=== PATIENT | female | born 1950 | race Caucasian/White ===

== ENCOUNTER 2018-04-02 11:00 | Emergency (ER) | payer BC ==
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
== END 2018-04-02 14:45 | disposition home or self-care (01) ==
LOC: JD.ED 11:00
DX: F32.9 Major depressive disorder, single episode, unspecified (principal); F41.9 Anxiety disorder, unspecified; F43.10 Post-traumatic stress disorder, unspecified; Z88.5 Allergy status to narcotic agent; Z88.0 Allergy status to penicillin; Z88.2 Allergy status to sulfonamides; Z88.1 Allergy status to other antibiotic agents; Z79.899 Other long term (current) drug therapy
CPT/HCPCS: 99284

== ENCOUNTER 2019-02-22 05:08 | Emergency (ER) | payer BC ==
[2019-02-22] MEDS ORDERED: HYDROmorphone 0.5 MG/0.5 ML Syringe IVPUSH ONE ×2 (05:40→07:03)
[2019-02-22] MEDS ORDERED: Ondansetron 4 MG/2 ML SDV IVPUSH ONE (05:40)
--- NOTE | 2019-02-22 05:43 | EDM.PDOC ---
ED HPI GENERAL MEDICAL PROBLEM - General Chief Complaint: Neck Problem Stated Complaint: SOB Time Seen by Provider: 02/22/19 05:25 Source of Information: Reports: Patient, Family (spouse) History Limitations: Reports: No Limitations - History of Present Illness INITIAL COMMENTS - FREE TEXT/NARRATIVE: 69-year-old female presents to the ED with her reporting increased pain central chest and a feeling of inability to swallow properly. Her breath at rest. Appreciate some difficulty swallowing as well. is a very complex past surgical history and medical history. Patient has had multiple effusions to her cervical spine from cervical 3 to T1. She is also had lumbar spine fusion surgery. She's had a tibial plateau fracture on her right knee repaired with hardware and is trimalleolar fracture of her left ankle many years ago. With hardware retained. Patient was diagnosed with rheumatoid arthritis in 2016 developed symptoms of diffuse joint pain in 2014. Developed increased pain in her upper thoracic spine approximately a week ago and is currently on Tramadol 50mg every 6 hours which is not helping the pain. She has chronic pain and difficulty walking. She has developed a significant scoliosis upper thoracic spine in the last 3-4 years. 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 She has a restrictive lung disease component due to the scoliosis of her thoracic spine. She is from [place]. Currently being followed by neurosurgeon in [place]. She is due for MRI of her cervical to lumbar spine in 2 days time at [facility] in [place]. Insert is whether or not she has developed a compression fracture in her thoracic spine. Currently she is having pain that seems to be an upper anterior central chest that radiates through to her back. This limits her ability to take a deep breath. She also has a sensation of difficulty swallowing. No rash development from being on tramadol. She has no known heart disease. She is currently not on any remittive agent for rheumatoid arthritis as she found all of them intolerant. Onset: Gradual Onset Date: 02/21/19 Onset Time: 12:00 Duration: Hour(s): Location: Reports: Neck, Chest Quality: Reports: Ache, Pressure Severity: Moderate (Mid and upper chest and throat. 8 out of 10) Improves with: Reports: None Worsens with: Reports: None Context: Reports: Other (Increased pain in her thoracic spine at T7-T8 level over the last week to 10 days). Denies: Activity, Exercise, Lifting, Sick Contact, Trauma Associated Symptoms: Reports: Chest Pain, Malaise, Shortness of Breath. Denies : Confusion, Cough, cough w sputum, Diaphoresis, Fever/Chills, Headaches, Loss of Appetite, Nausea/Vomiting, Rash, Seizure, Syncope Treatments [employer] CON[employer]YOR FEEDER: Reports: Other (see below) (Currently taking tramadol 50 mg every 6 hours.) Neck Pain Score (Numeric/FACES): 10 - Related Data Allergies Allergy/AdvReac Type Severity Reaction Status Date / Time codeine Allergy Nausea Verified 02/22/19 05:14 cortisone Allergy Burning Verified 02/22/19 05:14 Penicillins Allergy Airway Verified 02/22/19 05:14 Tightness sulfamethoxazole Allergy Chest Verified 02/22/19 05:14 [From Bactrim] Presssure trimethoprim [From Bactrim] Allergy Chest Verified 02/22/19 05:14 Presssure Home Meds: Home Meds ALPRAZolam [Xanax] 0.25 mg PO ASDIRECTED #30 tablet 04/02/18 [Rx] Cholecalciferol (Vitamin D3) [Vitamin D] 1,000 mg PO DAILY 04/02/18 [History] FLUoxetine [PROzac] 40 mg PO DAILY 04/02/18 [History] Multivitamins [Tab-A-Jaclyn] 1 tab PO DAILY 04/02/18 [History] Doxycycline [Vibramycin] 100 mg PO BID #20 cap 02/22/19 [Rx] oxyCODONE HCl/Acetaminophen [Percocet 5-325 mg Tablet] 1 - 2 each PO Q4H PRN # 24 tablet 02/22/19 [Rx] traMADol [Ultram] 50 mg PO Q6H PRN 02/22/19 [History] Past Medical History Cardiovascular History: Reports: Other (See Below) Other 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 Musculoskeletal History: Reports: Arthritis, RA, Other (See Below) Other Musculoskeletal History: left frqacture ankle with plate and screws Psychiatric History: Reports: Anxiety, Depression, PTSD - Past Surgical History HEENT Surgical History: Reports: Adenoidectomy, Tonsillectomy Female Surgical History: Reports: Section, Hysterectomy Musculoskeletal Surgical History: Reports: ORIF Other Musculoskeletal Surgeries/Procedures:: right knee with plate and 5 screws Social & Family History - Tobacco Use Smoking Status *Q: Never Smoker - Caffeine Use Caffeine Use: Reports: None - Recreational Drug Use Recreational Drug Use: No - Living Situation & Occupation Living situation: Reports: Occupation: Disabled ED ROS GENERAL - Review of Systems Review Of Systems: See Below Constitutional: Reports: Malaise, Weakness, Fatigue. Denies: Fever, Chills HEENT: Reports: Throat Swelling (Feels a pressure in her throat with difficulty swallowing.) Respiratory: Reports: Shortness of Breath. Denies: Wheezing, Pleuritic Chest Pain, Cough, Sputum, Hemoptysis, Other Cardiovascular: Reports: Chest Pain (Central chest pressure discomfort from anterior neck to xiphoid process.), Dyspnea on Exertion. Denies: Blood Pressure Problem, Claudication, Edema (Chronically worse the last year or so.), Lightheadedness, Orthopnea Endocrine: Reports: Fatigue (Chronically) GI/Abdominal: Reports: Constipation (Occasional positive constipation.) : Reports: No Symptoms Musculoskeletal: Reports: Neck Pain, Shoulder Pain, Back Pain, Joint Pain, Joint Swelling (Right knee left ankle. Left wrist both hands in the AM CP joints both feet in the MTP joints from rheumatoid arthritis.). Denies: Arm Pain (Bilaterally.), Hand Pain (Cervical thoracic and lumbar back pain), Leg Pain Skin: Reports: No Symptoms Neurological: Reports: No Symptoms Psychiatric: Reports: Depression, Other Hematologic/Lymphatic: Reports: No Symptoms (Chronic pain syndrome.) Immunologic: Reports: No Symptoms ED EXAM, UPPER BACK/NECK PAIN - Physical Exam Exam: See Below Exam Limited By: No Limitations General Appearance: Alert, WD/WN, Mild Distress, Other (Respiratory 16 per minute and O2 sats only 93% on room air. Blood pressure is 120/78.) Throat/Mouth Exam: Normal Inspection, Normal Lips, Normal Teeth, Normal Oropharynx, Other (Tonsils are removed. There is no edema of the posterior oropharynx the uvula or the floor of her mouth.). No: Hoarse Voice Head Exam: Atraumatic, Normocephalic. No: Scalp Lacerations, Scalp Swelling, Scalp Abrasions, Scalp Ecchymosis, Scalp Hematoma, Scalp Tenderness Neck Exam: Limited Range of Motion (She has hardly any flexion or extension of her cervical spine. It is pretty well rigid from fusion from C3-T1.), Other ( She has anterior puffiness or full dose in her throat and a palpable thyroid gland on examination. Previous scar to the right mid anterior neck zone 2 from cervical spine fusion.). No: Full Range of Motion Nexus Criteria: Posterior, Midline Cervical Tenderness. No: Evidence of Intoxication, Altered Level of Consciousness, Focal Neurological Deficit, Painful Distraction Injuries Cardiovascular/Respiratory: Regular Rate, Rhythm, Normal Peripheral Pulses, No JVD, Other (Decreased air entry to both lung crump due to splinting respirations as deep breathing makes her have pain worse. She does have diffuse chest wall pain on palpation of the ribs especially on the left side 34 and 5 and 6. On the right side it's more the fourth rib.). No: Irregularly Irregular , Gallop, Murmur, Decreased Pulses, Accessory Muscle uUe, Wheezing GI/Abdominal: Normal Bowel Sounds, Soft, Non-Tender, No Organomegaly, No Mass, Pelvis Stable Back Exam: Decreased Range of Motion, Other (Surgical scar midline lumbar spine from previous fusion surgery.) Extremities: Other (Patient shows limited range of motion at the wrists with deformity of the left ulnar wrist from rheumatoid arthritis. She has mild ulnar drift of both wrists at and MCP joints. There is bunion's bilaterally in her feet and evidence of MTP joint inflammation. Previous surgical scar to the right knee and left ankle .) Neurologic: No Motor/Sensory Deficits, Alert, Oriented x 3 Psychiatric: Normal Affect, Normal Mood, Other Skin Exam: Normal Color, Warm/Dry (In spite of being in a great deal of pain.) EKG INTERPRETATION EKG Date: 02/22/19 Time: 05:51 Rhythm: NSR Rate (Beats/Min): 77 [place]: LAD-Left [place] Deviation (A left axis deviation of -1) P-Wave: Enlarged (Consider left atrial hypertrophy.) QRS: Other (Decreased voltage throughout the precordial leads. Prominent R waves in lead 1 consider left ventricular hypertrophy. Near Q-wave in lead 3 and aVF. Cannot rule out an old inferior wall myocardial infarction.) ST-T: Other (Minimal ST segment elevation lead to only.) QT: Normal EKG Interpretation Comments: Borderline ECG. Course - Vital Signs Last Recorded V/S: Last Vital Signs Temp 37.1 C 02/22/19 05:12 Pulse 87 02/22/19 05:12 Resp 16 02/22/19 05:12 BP 120/78 02/22/19 05:12 Pulse Ox 93 L 02/22/19 05:12 - Orders/Labs/Meds Orders: Active Orders 24 hr Category Date Time Status Bladder Scan [RC] ASDIRECTED Care 02/22/19 07:19 Active EKG Documentation Completion [RC] STAT Care 02/22/19 05:41 Active Chest 1V Frontal [CR] Stat Exams 02/22/19 05:41 Taken URINALYSIS W/MICROSCOPIC [UA W/MICROSCOPIC] [URIN] Stat Lab 02/22/19 07:40 Ordered Sodium Chloride 0.9% [Normal Saline] 1,000 ml Med 02/22/19 05:45 Active IV ASDIRECTED Medication Orders Sodium Chloride (Normal Saline) 1,000 mls @ 100 mls/hr IV ASDIRECTED JOSE L Last Admin: 02/22/19 05:51 Dose: 100 mls/hr Labs: Laboratory Tests 02/22/19 02/22/19 02/22/19 Range/Units 06:07 06:07 06:07 WBC 14.43 H (3.98-10.04) K/mm3 RBC 4.44 (3.98-5.22) M/mm3 Hgb 13.8 (11.2-15.7) gm/L Hct 42.3 (34.1-44.9) % MCV 95.3 H (79.4-94.8) fl MCH 31.1 (25.6-32.2) pg MCHC 32.6 (32.2-35.5) g/dl RDW Std Deviation 43.6 (36.4-46.3) fL Plt Count 229 (182-369) K/mm3 MPV 10.2 (9.4-12.3) fl Neutrophils % (Manual) 81 H (40-60) % Band Neutrophils % 4 (0-10) % Lymphocytes % (Manual) 6 L (20-40) % Atypical Lymphs % 0 % Monocytes % (Manual) 9 (2-10) % Eosinophils % (Manual) 0 L (0.7-5.8) % Basophils % (Manual) 0 L (0.1-1.2) Platelet Estimate Adequate RBC Morph Comment Normal ESR 48 H (0-20) mm/hr D-Dimer, Quantitative (0.19-0.50) mg/L Sodium 138 (136-145) mEq/L Potassium 4.2 (3.5-5.1) mEq/L Chloride 103 (98-107) mEq/L Carbon Dioxide 25 (21-32) mEq/L Anion Gap 14.2 (5-15) BUN 13 (7-18) mg/dL Creatinine 0.6 (0.55-1.02) mg/dL Est Cr Clr Drug Dosing 81.87 mL/min Estimated GFR (MDRD) > 60 (>60) mL/min BUN/Creatinine Ratio 21.7 H (14-18) Glucose 130 H (80-115) mg/dL Calcium 9.3 (8.5-10.1) mg/dL Magnesium 1.6 L (1.8-2.4) mg/dl Total Bilirubin 0.6 (0.2-1.0) mg/dL AST 14 L (15-37) U/L ALT 19 (14-59) U/L Alkaline Phosphatase 96 (46-116) U/L CK-MB (CK-2) 1.0 (0-3.6) ng/ml Troponin I < 0.017 (0.00-0.056) ng/mL C-Reactive Protein (<1.0) mg/dL NT-Pro-B Natriuret Pep (0-125) pg/mL Total Protein 6.9 (6.4-8.2) g/dl Albumin 3.9 (3.4-5.0) g/dl Globulin 3.0 gm/dL Albumin/Globulin Ratio 1.3 (1-2) TSH 3rd Generation 1.308 (0.358-3.74) uIU/mL 02/22/19 02/22/19 02/22/19 Range/Units 06:07 06:07 06:07 WBC (3.98-10.04) K/mm3 RBC (3.98-5.22) M/mm3 Hgb (11.2-15.7) gm/L Hct (34.1-44.9) % MCV (79.4-94.8) fl MCH (25.6-32.2) pg MCHC (32.2-35.5) g/dl RDW Std Deviation (36.4-46.3) fL Plt Count (182-369) K/mm3 MPV (9.4-12.3) fl Neutrophils % (Manual) (40-60) % Band Neutrophils % (0-10) % Lymphocytes % (Manual) (20-40) % Atypical Lymphs % % Monocytes % (Manual) (2-10) % Eosinophils % (Manual) (0.7-5.8) % Basophils % (Manual) (0.1-1.2) Platelet Estimate RBC Morph Comment ESR (0-20) mm/hr D-Dimer, Quantitative 0.32 (0.19-0.50) mg/L Sodium (136-145) mEq/L Potassium (3.5-5.1) mEq/L Chloride (98-107) mEq/L Carbon Dioxide (21-32) mEq/L Anion Gap (5-15) BUN (7-18) mg/dL Creatinine (0.55-1.02) mg/dL Est Cr Clr Drug Dosing mL/min Estimated GFR (MDRD) (>60) mL/min BUN/Creatinine Ratio (14-18) Glucose (80-115) mg/dL Calcium (8.5-10.1) mg/dL Magnesium (1.8-2.4) mg/dl Total Bilirubin (0.2-1.0) mg/dL AST (15-37) U/L ALT (14-59) U/L Alkaline Phosphatase (46-116) U/L CK-MB (CK-2) (0-3.6) ng/ml Troponin I (0.00-0.056) ng/mL C-Reactive Protein 5.3 H* (<1.0) mg/dL NT-Pro-B Natriuret Pep 210 H (0-125) pg/mL Total Protein (6.4-8.2) g/dl Albumin (3.4-5.0) g/dl Globulin gm/dL Albumin/Globulin Ratio (1-2) TSH 3rd Generation (0.358-3.74) uIU/mL Meds: Medications Generic Name Dose Route Start Last Admin Trade Name Freq PRN Reason Stop Dose Admin Sodium Chloride 1,000 mls @ 100 mls/hr 02/22/19 05:45 02/22/19 05:51 Normal Saline IV 100 mls/hr ASDIRECTED JOSE L Administration Discontinued Medications Generic Name Dose Route Start Last Admin Trade Name Freq PRN Reason Stop Dose Admin Hydromorphone HCl 0.5 mg 02/22/19 05:40 02/22/19 05:52 Dilaudid IVPUSH 02/22/19 05:41 0.5 mg ONETIME ONE Administration Hydromorphone HCl 0.5 mg 02/22/19 07:03 02/22/19 07:08 Dilaudid IVPUSH 02/22/19 07:04 0.5 mg ONETIME ONE Administration Ondansetron HCl 4 mg 02/22/19 05:40 02/22/19 05:52 Zofran IVPUSH 02/22/19 05:41 4 mg ONETIME ONE Administration - Radiology Interpretation Free Text/Narrative:: 69-year-old female presents to the ED with central chest pressure discomfort rating up into her throat. This been present for about 24-32 hours. Vision has a complex medical history with rheumatoid arthritis. She has restrictive lung disorder as well as rheumatoid lung or interstitial lung disease. She feels dyspneic and is satting only at 93% on room air. She is not able to take a full date deep breath as it makes the pain worse in her sternum and chest area. She is due for MRI of her cervical thoracic and lumbar spine in 2 days time and [facility]. It is whether or not she has a fracture of her thoracic spine at T7-T8 level. She is currently on tramadol 50 mg every 6 hours but is not helping with the pain. Rates her pain as 8-9 out of 10 on examination. Due to the nature of her pain in her chest she will have a cardiac workup. This will include a d-dimer. There is no obvious swelling of her lower extremities to suggest a DVT. She has no cardiac history. Suspect her current dyspnea is due to splinting respirations due to pain. Plan IV fluids will normal saline 100 mils per hour. Will give Zofran 4 mg IV and Dilaudid 0.5 mg IV for pain relief. Will have routine labs including cardiac markers and d- dimer performed. One view chest x-ray to be done. Plan clinically is palpable. She has a fullness in her anterior neck which her relates is normal for her since she has had multiple cervical spine surgery. TSH will be done as part of her workup. - Re-Assessments/Exams Free Text/Narrative Re-Assessment/Exam: 02/22/19 06:20 One view portable chest x-ray completed. Have evidence of cervical neck hardware into the upper thoracic spine. As have scoliosis of the thoracic spine concave to the right. Adnexa wet is somewhat boot-shaped but is within normal limits. She does show some mediastinal peribronchial cuffing and nodularity particularly noted in the right lower lung field. There is diffuse vascular congestion pattern as well. O2 sats are staying around 92-93%. Patient reports she is having pinching biting pain in her left superior shoulder but her anterior chest pain is moderately improved after Dilaudid 0.5 mg IV. She doesn't feel she needs any more pain medication at this time. 02/22/19 06:52 White count is elevated at 14.43 differential pending. Hemoglobin is 13.8 with hematocrit of 42.3. MCV is 95.3. Platelet count is 229, 000. D-dimer is normal at 0.32. Sodium 138 with potassium of 4.2. Chloride 103 with a bicarbonate 25. Anion gap is 14.2. BUN is 13 with a creatinine of 0.6. Estimate his GFR is greater than 60. BUN/creatinine ratio is mildly elevated at 21.7. Glucose is 130. Calcium is 9.3. Magnesium is slightly low at 1.6. Liver function is normal. CK-MB is 1.0 with a troponin I of less than 0.017. BNP is minimally elevated at 210. TSH is 1.308 normal. Total protein 6.9 with an albumin fraction of 3.9. 02/22/19 07:03 Still awaiting the differential on the white count which is elevated. Patient is having increased pain in the left superior shoulder. Will repeat Dilaudid 0.5 mg IV. O2 sats every remained around 91-93% on room air. Appears to have an infection somewhere. She does admit to having gross hematuria last Tuesday--February 16 for one day. She is known to have a renal stone. She feels like she can void and therefore will collect a urine to make sure she is no infection there. 02/22/19 07:51 urine dip was positive for 3+ hematuria but negative for any signs of infection. Bladder scan postvoid is 0 and that she is emptying completely. I'm going to place her antibiotics Doxycycline -100 mg twice daily for the next 10 days. Percocet tabs 5/325 mg 24 tablets provided for pain relief. One or 2 tablets every 4-6 hours. Advised that she may need increased stool softer while taking the narcotics as that will slow her bowel down. She will discontinue the tramadol of course Departure - Departure Time of Disposition: 07:53 Disposition: Home, Self-Care 01 Clinical Impression: Radiculopathy of cervicothoracic region, Encounter for pain management Acute thoracic back pain Qualifiers: Back pain laterality: bilateral Qualified Code(s): M54.6 - Pain in thoracic spine - Discharge Information *PRESCRIPTION DRUG MONITORING PROGRAM REVIEWED*: No *COPY OF PRESCRIPTION DRUG MONITORING REPORT IN PATIENT ISA: No Prescriptions: Doxycycline [Vibramycin] 100 mg PO BID #20 cap oxyCODONE HCl/Acetaminophen [Percocet 5-325 mg Tablet] 1 - 2 each PO Q4H PRN # 24 tablet PRN Reason: pain relief. Referrals: Jamar Hernandes MD [Primary Care Provider] - Forms: ED Department Discharge Additional Instructions: Evaluation in the emergency room this morning due to increased pain particularly in the upper part of your left shoulder and anterior chest and sternum. As you indicated you have a pressure feeling in her throat and difficulty swallowing. There was no signs of obvious infection in your throat. Because of the chest pain complete cardiac workup was carried out and it was negative for any signs of infection or heart related illness. Chest x-ray does reveal scar tissue in the right lower lung field compatible with rheumatoid lung.There is an obvious scoliosis of your thoracic spine concave to the right side. Concern is for nerve root impingement or compression either from arthritis around the nerve root word exits from your neck due to previous surgery causing left upper shoulder pain. Concern for possible compression fracture in the mid thoracic spine as cause of your chest pain is appreciated. Lab tests revealed an elevated white count with a left shift suggesting an underlying infection. Infection was found in the chest x-ray or in the urine. Bladder scan reveals urinary bladder is emptying completely. Of note the urinalysis does show there is blood in the urine presumably from kidney stone but this needs to be thoroughly to make sure there is nothing else causing blood in the urine. Suggest use of antibiotic doxycycline 100 mg twice daily for the next 10 days cover for infective process developing in your chest. It may not be evident on chest x-ray at this time.. Pain management to be to discontinue the Tramadol as it is not helping. Replace with Percocet 5/325mg tabs --1-2 every 4hrs as needed for chest pain. Of course follow-up with MRI that is booked for tomorrow in [place] as this will toward out whether there is nerve root impingement injured neck and whether there is a compression fracture in her thoracic spine. - My Orders Last 24 Hours: My Active Orders 02/22/19 05:41 EKG Documentation Completion [RC] STAT Chest 1V Frontal [CR] Stat 02/22/19 05:45 Sodium Chloride 0.9% [Normal Saline] 1,000 ml IV ASDIRECTED 02/22/19 07:19 Bladder Scan [RC] ASDIRECTED 02/22/19 07:40 URINALYSIS W/MICROSCOPIC [UA W/MICROSCOPIC] [URIN] Stat - Assessment/Plan Last 24 Hours: My Active Orders 02/22/19 05:41 EKG Documentation Completion [RC] STAT Chest 1V Frontal [CR] Stat 02/22/19 05:45 Sodium Chloride 0.9% [Normal Saline] 1,000 ml IV ASDIRECTED 02/22/19 07:19 Bladder Scan [RC] ASDIRECTED 02/22/19 07:40 URINALYSIS W/MICROSCOPIC [UA W/MICROSCOPIC] [URIN] Stat
[2019-02-22] MEDS ORDERED: Sodium Chloride 0.9% 1,000 ML IV SCH (05:45)
--- NOTE | 2019-02-22 07:59 | CR ---
Chest: Frontal view of the chest was obtained. Comparison: No prior chest x-ray. Heart size is slightly enlarged. Mild tortuosity of the thoracic aorta is seen. Previous surgery is noted within the lower cervical and upper thoracic spine. Minimal atelectasis is seen within the left lung base. Lungs otherwise are clear. Scoliosis is present within the spine as well as osteopenia. Impression: 1. Findings as described above. 2. Nothing acute is appreciated. Diagnostic code #2
== END 2019-02-22 08:15 | disposition home or self-care (01) ==
LOC: JD.ED 05:08
DX: M54.13 Radiculopathy, cervicothoracic region (principal); M54.6 Pain in thoracic spine; F41.9 Anxiety disorder, unspecified; F32.9 Major depressive disorder, single episode, unspecified; Z88.5 Allergy status to narcotic agent; Z88.0 Allergy status to penicillin; Z88.2 Allergy status to sulfonamides; Z88.1 Allergy status to other antibiotic agents; Z88.8 Allergy status to other drugs, medicaments and biological substances; Z79.899 Other long term (current) drug therapy
CPT/HCPCS: 36415; 51798; 71045; 80053; 81001; 82553; 83735; 83880; 84443; 84484; 85007; 85027; 85379; 85652; 86140; 93005; 96361; 96374; 96375; 96376; 99284; J1170; J2405; J7040; 93010